=== PATIENT | female | born 1970 ===

== ENCOUNTER 2017-07-05 10:29 | Emergency (ER) | payer SELFPAY ==
[2017-07-05 11:08] VITALS: TEMP 97.9
[2017-07-05] MEDS ORDERED: Oxycodone/Acetaminophen 5/325 mg Tab PO STA (11:52)
[2017-07-05] MEDS ORDERED: Oxycodone/Acetaminophen 5/325 mg Tab ONE (11:59)
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
[2017-07-05 14:21] VITALS: BP 105/70; PULSE 64; RESP 18
[2017-07-05 18:29] VITALS: O2SAT 98
== END 2017-07-05 14:20 | disposition home or self-care (01) ==
LOC: H.ER 10:29
DX: S20.219A Contusion of unspecified front wall of thorax, initial encounter (principal); Y04.0XXA Assault by unarmed brawl or fight, initial encounter; Y92.89 Other specified places as the place of occurrence of the external cause

== ENCOUNTER 2017-07-12 09:48 | Emergency (ER) | payer OTHER ==
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
[2017-07-12 10:32] VITALS: BP 121/64; PULSE 64; RESP 22; TEMP 97.9; O2SAT 100
--- NOTE | 2017-07-12 13:45 | RAD ---
HISTORY: Right sided pain COMPARISON: No prior. TECHNIQUE: Chest PA and lateral FINDINGS: LUNGS: No active pulmonary disease. PLEURA: No significant pleural effusion identified. No pneumothorax apparent. CARDIOVASCULAR: Normal. OSSEOUS STRUCTURES: No significant abnormalities. VISUALIZED UPPER ABDOMEN: Normal. OTHER FINDINGS: None. IMPRESSION: No active disease.
== END 2017-07-12 11:17 | disposition home or self-care (01) ==
LOC: H.ER 09:48
DX: S20.219D Contusion of unspecified front wall of thorax, subsequent encounter (principal); Y08.89XD Assault by other specified means, subsequent encounter